=== PATIENT | female | born 1985 | race American Indian/Alaskan Native ===

== ENCOUNTER 2021-10-06 19:06 | Emergency (ER) | payer BC ==
[2021-10-06] MEDS ORDERED: IBUPROFEN 800 MG TAB PO ONE (21:22)
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
--- NOTE | 2021-10-06 22:10 | XRay Report ---
CHEST 2 VIEWS INDICATION / CLINICAL INFORMATION: chest pain. COMPARISON: None available. FINDINGS: SUPPORT DEVICES: None. HEART / MEDIASTINUM: No significant abnormality. LUNGS / PLEURA: No significant pulmonary or pleural abnormality. No pneumothorax. ADDITIONAL FINDINGS: No significant additional findings. IMPRESSION: 1. No acute findings. Signer Name: Jeffry Delaney DO Signed: 10/06/2021 10:05 PM Workstation Name: [id number]
[2021-10-07 03:56] VITALS: BP 120/79
--- NOTE | 2021-10-07 12:25 | Electrocardiograph Report ---
[facility] Test Date: 2021-10-06 Test Time: 19:58:31 Pat Name: DOM ROBERSON Department: Room: Gender: F [address] Bailiff: PUSHPA : 1985 Requested By: NAZARIO MADRIGAL Order Number: [id number] Reading MD: Maynor Kessler Measurements Intervals [place] Rate: 79 P: 82 MO: 177 QRS: 53 QRSD: 94 T: 44 QT: 378 QTc: 435 Interpretive Statements Sinus rhythm ST elev, probable normal early repol pattern No previous ECG available for comparison Electronically Signed On 10-07-2021 12:24:57 EST by Maynor Kessler
== END 2021-10-07 03:57 | disposition home or self-care (01) ==
LOC: ED 19:06
DX: S39.012A Strain of muscle, fascia and tendon of lower back, initial encounter (principal); R07.9 Chest pain, unspecified; V89.2XXA Person injured in unspecified motor-vehicle accident, traffic, initial encounter; Y93.89 Activity, other specified; Y92.89 Other specified places as the place of occurrence of the external cause; Y99.8 Other external cause status
CPT/HCPCS: 71046; 93005; 99283